=== PATIENT | male | born 1950 | race Caucasian/White ===

== ENCOUNTER 2017-02-10 15:09 | Emergency (ER) | payer OTHER ==
[~2017-02-10] VITALS: Ht 175.3 cm; Wt 63.5 kg
[~2017-02-10 15:09] MED LIST: CIPRO500 MG PO; ESTRACE0.5 MG; FLAGYL500 MG PO; HYDROCODON-ACE1 EAC7 PO; IBUPROFEN 600600 M1 PO; NOHOMEMEDICATIONS; NORCO 5-325 TA1 EACH PO; PREDNISONE 20 M20 MG PO; SENOKOT-S1 TA1 PO; VENTOLIN HFA 1818 GM INH
[2017-02-10] MEDS ORDERED: MED FOR GERD (15:12)
[2017-02-10] MEDS ORDERED: LEVAQUIN 500 M500 M2 PO (15:40)
== END 2017-02-10 16:12 ==
LOC: ER 15:09
DX: S91.331A Puncture wound without foreign body, right foot, initial encounter (principal); Z23 Encounter for immunization; K21.9 Gastro-esophageal reflux disease without esophagitis; Z90.89 Acquired absence of other organs; Z88.0 Allergy status to penicillin; Z88.2 Allergy status to sulfonamides; W22.8XXA Striking against or struck by other objects, initial encounter; Y93.89 Activity, other specified; Y92.89 Other specified places as the place of occurrence of the external cause; Y99.9 Unspecified external cause status

== ENCOUNTER 2019-09-12 12:57 | Emergency (ER) | payer OTHER ==
[~2019-09-12] VITALS: Ht 175.3 cm; Wt 68.0 kg
[~2019-09-12 12:57] MED LIST changes: +LEVAQUIN 500 M500 M2 PO; +MED FOR GERD
[2019-09-12] MEDS ORDERED: PROTONIX40 M2 PO (13:36)
[2019-09-12 13:51] LABS: URINE BILIRUBIN NEGATIVE (Negative); URINE BLOOD NEGATIVE (Negative); URINE CLARITY CLEAR; URINE COLOR YELLOW; URINE GLUCOSE-RANDOM* NEGATIVE (Negative); URINE KETONES NEGATIVE (Negative); URINE LEUKOCYTES-REFLEX NEGATIVE (Negative); URINE NITRITE-REFLEX NEGATIVE (Negative); URINE PROTEIN (DIPSTICK) NEGATIVE (Negative); URINE UROBILINOGEN 0.2 E.U./dl (0.2-1.0)
[2019-09-12 15:38] VITALS: BP 144/49
[2019-09-12] MEDS ORDERED: NORCO 5-325 TA1 EAC1 PO (16:28)
== END 2019-09-12 16:56 | disposition home or self-care (01) ==
LOC: ER 12:57
PROVIDERS: Emergency Medicine
DX: K40.90 Unilateral inguinal hernia, without obstruction or gangrene, not specified as recurrent (principal); K21.9 Gastro-esophageal reflux disease without esophagitis; F17.210 Nicotine dependence, cigarettes, uncomplicated; Z90.89 Acquired absence of other organs; Z88.0 Allergy status to penicillin; Z88.2 Allergy status to sulfonamides

== ENCOUNTER 2019-12-31 23:20 | Emergency (ER) | payer OTHER ==
[~2019-12-31] VITALS: Ht 175.3 cm; Wt 68.0 kg
[~2019-12-31 23:20] MED LIST changes: +NORCO 5-325 TA1 EAC1 PO; +PROTONIX40 M2 PO
[2019-12-31 23:26] VITALS: BP 178/67
== END 2020-01-01 01:25 | disposition home or self-care (01) ==
LOC: ER 23:20
DX: J02.9 Acute pharyngitis, unspecified (principal); K21.9 Gastro-esophageal reflux disease without esophagitis; F17.210 Nicotine dependence, cigarettes, uncomplicated; Z88.0 Allergy status to penicillin; Z88.2 Allergy status to sulfonamides